=== PATIENT | female | born 1985 | race African-American/Black ===

== ENCOUNTER 2019-10-20 05:03 | Emergency (ER) | payer OTHER ==
[~2019-10-20] VITALS: Ht 188 cm; Wt 117.9 kg
[2019-10-20 05:07] VITALS: Ht 188 cm; Wt 117.9 kg
[2019-10-20 05:25] LABS: BASOPHILS 0.8 % (0-2); EOSINOPHILS 2.6 % (0-7); HEMATOCRIT 40.6 % (36.0-48.0); HEMOGLOBIN 12.7 g/dL (12-16); IMMATURE GRANULOCYTES 0.1 % (0-5); LYMPHOCYTES 19.7 % (15-50); MCH 29.3 pg (26.0-34.0); MCHC 31.3 g/dL (31.0-37.0); MCV 93.5 fL (80.0-100.0); MEAN PLATELET VOLUME 10.7 fL (7.4-10.4); MONOCYTES 8.3 % (2-11); NEUTROPHILS 68.5 % (40-80); PLATELET COUNT 226 10x3/uL (130-400); RBC 4.34 10x6/uL (4.00-5.40); RDW 12.3 % (11.5-14.5); WBC 8.7 10x3/uL (4.8-10.8)
[2019-10-20 05:42] LABS: CALC OSMOLALITY 279 mosm/kg (275-300); CALCIUM 8.8 mg/dL (8.5-10.1); CARBON DIOXIDE 27.8 mmol/L (21.0-32.0); CHLORIDE - SERUM 105 mmol/L (98-107); GLUCOSE 95 mg/dL (74-106); POTASSIUM - SERUM 3.6 mmol/L (3.5-5.1); SODIUM 140 mmol/L (136-145); UREA NITROGEN 16 mg/dL (7-18); eGFR NON AFRICAN AMERICAN 69 mL/min (90-120)
[2019-10-20 05:43] LABS: APTT 32.1 SECONDS (22.8-39.4); INR 0.98 (0.85-1.17)
[2019-10-20 05:59] LABS: ALBUMIN 3.9 g/dL (3.4-5.0); ALKALINE PHOSPHATASE 79 U/L (30-120); ALT (SGPT) 27 U/L (10-68); BILIRUBIN - TOTAL 0.22 mg/dL (0.2-1.3); CKMB 1.2 U/L (0.0-3.6); CREATINE KINASE 111 UL (21-215); MAGNESIUM - SERUM 1.9 mg/dL (1.8-2.4); PROTEIN - SERUM 7.5 g/dL (6.4-8.2); TROPONIN-I < 0.017 ng/mL (0.000-0.060)
[2019-10-20] MEDS ORDERED: PROTONIX40 MG PO (06:21)
[2019-10-20 06:35] VITALS: BP 153/66
== END 2019-10-20 06:37 | disposition home or self-care (01) ==
LOC: D.ER 05:03
PROVIDERS: Family Medicine
DX: K21.9 Gastro-esophageal reflux disease without esophagitis (principal); R07.9 Chest pain, unspecified

== ENCOUNTER 2020-10-26 03:43 | Emergency (ER) | payer OTHER ==
[~2020-10-26] VITALS: Ht 188 cm; Wt 127.3 kg
[~2020-10-26 03:43] MED LIST: PROTONIX40 MG PO
[2020-10-26 03:47] VITALS: BP 161/79; Ht 188 cm; Wt 127.3 kg
[2020-10-26] MEDS ORDERED: MULTI-DAY VITAM1 TAB PO (08:25)
[2020-10-26] MEDS ORDERED: PROTONIX40 MG PO (12:33)
== END 2020-10-26 05:23 | disposition home or self-care (01) ==
LOC: D.ER 03:43
DX: K21.9 Gastro-esophageal reflux disease without esophagitis (principal); R07.9 Chest pain, unspecified

== ENCOUNTER 2020-10-26 08:07 | Emergency (ER) | payer OTHER ==
[~2020-10-26] VITALS: Ht 188 cm; Wt 127.3 kg
[2020-10-26 08:11] VITALS: Ht 188 cm; Wt 127.3 kg
[2020-10-26] MEDS ORDERED: MULTI-DAY VITAM1 TAB PO (08:25)
[2020-10-26 09:16] LABS: BASOPHILS 0.8 % (0-2); EOSINOPHILS 0.3 % (0-7); HEMATOCRIT 40.4 % (36.0-48.0); HEMOGLOBIN 13.1 g/dL (12-16); LYMPHOCYTES 6.2 % (15-50); MCH 29.3 pg (26.0-34.0); MCHC 32.5 g/dL (31.0-37.0); MCV 90.2 fL (80.0-100.0); MEAN PLATELET VOLUME 9.4 fL (7.4-10.4); MONOCYTES 2.8 % (2-11); NEUTROPHILS 89.9 % (40-80); PLATELET COUNT 186 10x3/uL (130-400); RBC 4.47 10x6/uL (4.00-5.40); RDW 12.9 % (11.5-14.5); WBC 9.7 10x3/uL (4.8-10.8)
[2020-10-26 09:23] LABS: CALC OSMOLALITY 276 mosm/kg (275-300); CALCIUM 8.9 mg/dL (8.5-10.1); CARBON DIOXIDE 25.4 mmol/L (21.0-32.0); CHLORIDE - SERUM 104 mmol/L (98-107); CREATININE - SERUM 0.7 mg/dL (0.6-1.3); GLUCOSE 130 mg/dL (74-106); POTASSIUM - SERUM 3.7 mmol/L (3.5-5.1); SODIUM 137 mmol/L (136-145); UREA NITROGEN 14 mg/dL (7-18); eGFR NON AFRICAN AMERICAN > 90 mL/min (90-120)
[2020-10-26 09:40] LABS: ALBUMIN 4.2 g/dL (3.4-5.0); ALKALINE PHOSPHATASE 71 U/L (30-120); ALT (SGPT) 27 U/L (10-68); BILIRUBIN - TOTAL 0.44 mg/dL (0.2-1.3); CKMB 1.5 U/L (0.0-3.6); CREATINE KINASE 102 UL (21-215); MAGNESIUM - SERUM 1.9 mg/dL (1.8-2.4); TROPONIN-I < 0.017 ng/mL (0.000-0.060)
[2020-10-26 10:00] LABS: APTT 31.7 SECONDS (22.8-39.4); INR 1.22 (0.85-1.17); PROTIME 14.3 SECONDS (11.6-15.0)
[2020-10-26] MEDS ORDERED: PROTONIX40 MG PO (12:33)
[2020-10-26 12:50] VITALS: BP 132/78
== END 2020-10-26 13:00 | disposition home or self-care (01) ==
LOC: D.ER 08:07
PROVIDERS: Family Medicine
DX: R07.89 Other chest pain (principal)